=== PATIENT | male | born 1985 | race Caucasian/White ===

== ENCOUNTER 2025-08-08 23:56 | Emergency (ER) | payer BC ==
[~2025-08-08] VITALS: Ht 180.3 cm; Wt 81.6 kg
[2025-08-09 00:08] VITALS: BP 126/67
[2025-08-09] MEDS: LIDOCAINE 2%-EPI 1:100,000 20 ML VIAL IJ ONE (00:32)
[2025-08-09 02:31] VITALS: BP 130/70; O2SAT 98
== END 2025-08-09 01:18 | disposition home or self-care (01) ==
LOC: ER 08-09 00:09
DX: S01.511A Laceration without foreign body of lip, initial encounter (principal); W22.8XXA Striking against or struck by other objects, initial encounter; Y93.89 Activity, other specified; Y92.89 Other specified places as the place of occurrence of the external cause; Y99.9 Unspecified external cause status
CPT/HCPCS: A4606; A4663